=== PATIENT | male | born 1975 | race Caucasian/White ===

== ENCOUNTER 2024-01-26 09:57 | Emergency (ER) | payer OTHER | END 2024-01-26 10:44 | disposition home or self-care (01) | LOC: MW.ED 09:57 | DX: M70.41 Prepatellar bursitis, right knee (principal); Z75.8 Other problems related to medical facilities and other health care; Z79.899 Other long term (current) drug therapy | CPT/HCPCS: 99283 ==

== ENCOUNTER 2024-03-26 13:11 | Emergency (ER) | payer OTHER ==
[2024-03-26] MEDS ORDERED: Sodium Chloride 0.9% 20 ML SDV IV PRN (14:53)
[2024-03-26] MEDS ORDERED: Sodium Chloride 0.9% 2.5 ML Syringe FLUSH PRN (14:53)
[2024-03-26] MEDS ORDERED: Sodium Chloride 0.9% 10 ML Syringe FLUSH PRN (14:53)
[2024-03-26] MEDS: Acetaminophen 500 MG Tab PO ONE (15:35)
[2024-03-26] MEDS: HYDROmorphone 0.5 MG/0.5 ML Syringe IVPUSH ONE (15:35)
[2024-03-26] MEDS: Ondansetron 4 MG/2 ML SDV IVPUSH ONE (15:35)
[2024-03-26 15:39] LABS: BASOPHILS ABSOLUTE AUTO 0.03 K/uL (0.00-0.20); BASOPHILS PERCENT AUTO 0.5 % (0.0-1.0); EOSINOPHILS ABSOLUTE AUTO 0.11 K/uL (0.00-0.45); EOSINOPHILS PERCENT AUTO 1.7 % (0.0-6.0); HEMOGLOBIN 14.2 g/dL (14.0-18.0); IMMATURE GRAN ABSOLUTE AUTO 0.07 K/uL (0.00-0.05); IMMATURE GRAN PERCENT AUTO 1.1 % (0.0-0.4); LYMPHOCYTES PERCENT AUTO 21.5 % (24.0-44.0); MEAN CORPUSCULAR HEMOGLOBIN 28.6 pg (28.0-32.0); MEAN CORPUSCULAR HGB CONC 33.8 g/dL (32.0-36.0); MEAN CORPUSCULAR VOLUME 84.7 fL (83.0-99.0); MONOCYTES ABSOLUTE AUTO 0.52 K/uL (0.00-0.80); NEUTROPHILS ABSOLUTE AUTO 4.39 K/uL (1.80-7.70); NEUTROPHILS PERCENT AUTO 67.2 % (41.0-71.0); PLATELET COUNT,PLT 200 K/uL (150-400); RED BLOOD CELL COUNT 4.96 M/uL (4.52-5.90); WHITE BLOOD CELL COUNT,WBC 6.52 K/uL (3.9-11.3)
[2024-03-26 16:15] LABS: A/G RATIO 1.5 (0.9-1.6); ALBUMIN 3.8 g/dL (3.4-5.0); BILIRUBIN TOTAL 0.4 mg/dL (0.2-1.0); CALCIUM 8.6 mg/dL (8.5-10.1); CARBON DIOXIDE,CO2 26.4 mmol/L (21.0-32.0); CREATININE 1.1 mg/dL (0.8-1.3); EST CRCL DRUG DOSING (CG) 86.64 mL/min; POTASSIUM,K 4.1 mmol/L (3.5-5.1); PROTEIN TOTAL,TP 6.4 g/dL (6.4-8.2)
[2024-03-26] MEDS: Ketorolac 30 MG/ML SDV IVPUSH ONE (18:38)
== END 2024-03-26 18:58 | disposition home or self-care (01) ==
LOC: MW.ED 13:11
DX: S28.0XXA Crushed chest, initial encounter (principal); S38.1XXA Crushing injury of abdomen, lower back, and pelvis, initial encounter; S70.12XA Contusion of left thigh, initial encounter; S70.11XA Contusion of right thigh, initial encounter; M79.651 Pain in right thigh; M79.652 Pain in left thigh; Z79.899 Other long term (current) drug therapy; W20.8XXA Other cause of strike by thrown, projected or falling object, initial encounter; Z75.8 Other problems related to medical facilities and other health care
CPT/HCPCS: 36415; 71260; 73552; 74177; 80053; 82550; 83690; 85025; 96374; 96375; 99284; A9270; J1170; J1885; J2405

== ENCOUNTER 2024-12-07 11:51 | Emergency (ER) | payer OTHER ==
[2024-12-07] MEDS: Ondansetron 4 MG Tab.DIS PO ONE (12:30)
[2024-12-07] MEDS: Diphtheria,Pertussis(Acell),Tetanus Vaccine 0.5 ML Syringe IM ONE (12:30)
[2024-12-07] MEDS: HYDROmorphone 1 MG/ML Syringe IM ONE (12:31)
[2024-12-07] MEDS: Lidocaine 1% 5 ML VIAL INJECT ONE ×2 (14:10)
[2024-12-07] MEDS: Lidocaine 1% 5 ML VIAL ONE (15:19)
[2024-12-07] MEDS: Water For Injection, Sterile 10 ML SDV INJECT ONE (15:43)
[2024-12-07] MEDS: Water For Injection, Sterile 20 ML ONE (15:43)
[2024-12-07] MEDS: ceFAZolin 1 GM Vial IM ONE (15:43)
== END 2024-12-07 16:32 | disposition home or self-care (01) ==
LOC: MW.ED 11:51
DX: S68.022A Partial traumatic metacarpophalangeal amputation of left thumb, initial encounter (principal); Z23 Encounter for immunization; Z75.3 Unavailability and inaccessibility of health-care facilities; W20.8XXA Other cause of strike by thrown, projected or falling object, initial encounter
CPT/HCPCS: 73130; 90471; 90715; 96372; 99283; A9270; J0690; J1171; J2003